=== PATIENT | female | born 1970 | race Caucasian/White ===

== ENCOUNTER 2016-08-23 16:19 | Emergency (ER) | payer OTHER ==
[~2016-08-23] VITALS: Ht 154.9 cm; Wt 111.8 kg
[~2016-08-23 16:19] MED LIST: BACTRIM,SEPT1 TABLET PO; IBUPROFEN800 MG PO; VICODIN 5-3001 EACH PO; [UNRECOGNIZED DRUG - REMARK]; [UNRECOGNIZED DRUG - REMARK]; [UNRECOGNIZED DRUG - REMARK]
[2016-08-23 17:42] LABS: HEMATOCRIT 41.2 % (36.0-46.0); MCH 29.2 PG (29.0-34.0); MCHC 34.7 G/DL (30.0-36.0); MCV 84.3 FL (83-99); MEAN PLAT.VOLUME 9.9 uM^3 (9.5-12.4); PLATELET COUNT 352 K/uL (156-360); RBC DIS.WIDTH-CV 12.1 % (11.8-14.6); RBC DIS.WIDTH-SD 36.5 % (39-53); RED BLOOD COUNT 4.89 M/uL (3.80-5.20)
[2016-08-23 17:45] LABS: WHITE BLOOD COUNT 11.4 K/uL (4.1-10.2)
[2016-08-23 17:54] LABS: CHLORIDE 106 mEq/L (99-109); POTASSIUM 4.2 mEq/L (3.7-5.4); SODIUM 141 mEq/L (136-147)
[2016-08-23 17:56] LABS: GLUCOSE 121 mg/dL (70-99)
[2016-08-23 17:57] LABS: ANION GAP 13 MEQ/L (2-14)
[2016-08-23 17:58] LABS: TOTAL BILIRUBIN 0.4 mg/dL (0.0-1.0)
[2016-08-23 18:00] LABS: ALKALINE PHOSPHATASE 130 IU/L (3-129); GFR ESTIMATE (CALCULATED) > 59 mL/min/
[2016-08-23 18:01] LABS: UREA NITROGEN (BUN) 10 mg/dL (9-23)
[2016-08-23 18:27] LABS: ADD MIUA? YES; BILIRUBIN NEGATIVE; BLOOD NEGATIVE; COLOR YELLOW ((YELLOW)); GLUCOSE (STRIP) NEGATIVE; KETONES NEGATIVE; LEUKOCYTES NEGATIVE; NITRITE NEGATIVE; PROTEIN (STRIP) NEGATIVE; SPECIFIC GRAVITY 1.021 (1.000-1.030); UROBILINOGEN 0.2 MG/DL (0.2-1.0)
[2016-08-23 18:33] LABS: BACTERIA NONE SEEN /HPF; EPITHELIAL CELLS 1+ /HPF; MUCUS TRACE /LPF; RED BLOOD CELLS 0-5 /HPF (0-5); UCUL ADDED? NO; WHITE BLOOD CELLS 0-5 /HPF (0-5)
[2016-08-23] MEDS ORDERED: NAPROSYN500 MG PO (20:29)
[2016-08-23] MEDS ORDERED: TRAMADOL HCL50 MG PO (20:29)
[2016-08-23 20:44] VITALS: BP 127/69
== END 2016-08-23 20:45 | disposition home or self-care (01) ==
LOC: EME 16:19
PROVIDERS: Nurse Practitioner Family
DX: N83.202 Unspecified ovarian cyst, left side (principal); N83.201 Unspecified ovarian cyst, right side; R11.2 Nausea with vomiting, unspecified; K76.0 Fatty (change of) liver, not elsewhere classified; I10 Essential (primary) hypertension; E11.9 Type 2 diabetes mellitus without complications; Z87.891 Personal history of nicotine dependence
CPT/HCPCS: 74176; 80053; 81003; 85027; 99281; 99284; J1885

== ENCOUNTER 2016-12-26 21:03 | Inpatient (IN) | payer OTHER ==
[~2016-12-26] VITALS: Ht 154.9 cm; Wt 115.4 kg
[~2016-12-26 21:03] MED LIST changes: +ASPIRIN81 M2 PO; +CLOZARIL100 MG PO; +COLACE100 MG PO; +DITROPAN5 MG PO; +LANTUS 3 M100 UNITS1 SC; +LIPITOR20 MG PO; +LISINOPRIL10 MG PO; +LOPID600 MG PO; +MULTIPLE VITAM1 EAC1 PO; +NAPROSYN500 MG PO; +NEURONTIN300 MG PO; +NOVOLOG PE100 UNITS/ SC; +TRAMADOL HCL50 MG PO
[2016-12-27 14:13] VITALS: BP 138/82
[2016-12-27 14:21] LABS: POINT-OF-CARE METER ID UU14174212
[2016-12-27 14:59] LABS: METH RESISTANT S AUREUS PCR NEGATIVE (NEGATIVE)
[2016-12-27 15:48] LABS: PROBE CHECK PASS; SPECIMEN PROCESSING CONTROL PASS
[2016-12-27 18:16] LABS: POINT-OF-CARE METER ID UU13113675
[2016-12-27 20:01] LABS: HEMATOCRIT 35.9 % (36.0-46.0); MCH 29.9 PG (29.0-34.0); MCHC 34.3 G/DL (30.0-36.0); MCV 87.3 FL (83-99); MEAN PLAT.VOLUME 9.7 uM^3 (9.5-12.4); PLATELET COUNT 239 K/uL (156-360); RBC DIS.WIDTH-CV 12.9 % (11.8-14.6); RBC DIS.WIDTH-SD 40.7 % (39-53); RED BLOOD COUNT 4.11 M/uL (3.80-5.20)
[2016-12-27 20:13] VITALS: BP 149/80
[2016-12-27 20:24] LABS: ANION GAP 9 MEQ/L (2-14); CHLORIDE 107 MEQ/L (99-109); GFR ESTIMATE (CALCULATED) > 59 mL/min/; GLUCOSE 124 mg/dL (70-99); POTASSIUM 4.3 MEQ/L (3.7-5.4); SAMPLE HEMOLYSIS CHECK 0; SAMPLE ICTERIC CHECK 0; SAMPLE LIPEMIA CHECK 0; SODIUM 141 MEQ/L (136-147); UREA NITROGEN (BUN) 10 mg/dL (9-23)
[2016-12-27 23:48] LABS: POINT-OF-CARE METER ID UU14162508
[2016-12-28 00:39] VITALS: BP 138/80
[2016-12-28 03:58] VITALS: BP 141/82
[2016-12-28 05:24] LABS: POINT-OF-CARE METER ID UU14162508
[2016-12-28 07:06] LABS: HEMATOCRIT 35.8 % (36.0-46.0); MCHC 34.9 G/DL (30.0-36.0); MCV 85.9 FL (83-99); MEAN PLAT.VOLUME 9.9 uM^3 (9.5-12.4); PLATELET COUNT 234 K/uL (156-360); RBC DIS.WIDTH-CV 12.7 % (11.8-14.6); RBC DIS.WIDTH-SD 39.3 % (39-53); RED BLOOD COUNT 4.17 M/uL (3.80-5.20); WHITE BLOOD COUNT 10.3 K/uL (4.1-10.2)
[2016-12-28 07:29] LABS: ANION GAP 9 MEQ/L (2-14); CHLORIDE 106 MEQ/L (99-109); GFR ESTIMATE (CALCULATED) > 59 mL/min/; POTASSIUM 3.8 MEQ/L (3.7-5.4); SAMPLE HEMOLYSIS CHECK 0; SAMPLE ICTERIC CHECK 0; SAMPLE LIPEMIA CHECK 0; SODIUM 140 MEQ/L (136-147); UREA NITROGEN (BUN) 7 mg/dL (9-23)
[2016-12-28 07:36] LABS: GLUCOSE 88 mg/dL (70-99)
[2016-12-28 07:55] VITALS: BP 114/61
[2016-12-28 11:15] VITALS: BP 137/75
[2016-12-28 12:04] LABS: POINT-OF-CARE METER ID UU14162508; POINT-OF-CARE USER ID PUTDRM
[2016-12-28 15:33] VITALS: BP 139/81
[2016-12-28 16:32] LABS: POINT-OF-CARE METER ID UU14162508; POINT-OF-CARE USER ID PUTDRM
[2016-12-28 16:53] LABS: EOSINOPHIL (%) 0 % (0-5); HEMATOCRIT 36.9 % (36.0-46.0); IMMATURE GRANULOCYTE (%) 0.3 % (0.0-0.7); INSTRUMENT ABS NEUTROPHIL CT 10.9 K/uL; LYMPHOCYTE COUNT 1.1 K/uL (1.0-2.8); MCHC 33.9 G/DL (30.0-36.0); MCV 85.6 FL (83-99); MEAN PLAT.VOLUME 9.9 uM^3 (9.5-12.4); MONOCYTE (%) 7.2 % (3-12); MONOCYTE COUNT 0.9 K/uL (0-0.8); NEUTROPHIL (%) 84.3 % (45-76); NEUTROPHIL COUNT 10.9 K/uL (1.8-6.4); PLATELET COUNT 230 K/uL (156-360); RBC DIS.WIDTH-CV 12.6 % (11.8-14.6); RBC DIS.WIDTH-SD 39.4 % (39-53); RED BLOOD COUNT 4.31 M/uL (3.80-5.20)
[2016-12-28 19:30] VITALS: BP 143/99
[2016-12-28 22:26] LABS: POINT-OF-CARE METER ID UU14162508
[2016-12-29] VITALS: BP 137/74
[2016-12-29 04:01] VITALS: BP 131/78
[2016-12-29 06:30] LABS: POINT-OF-CARE METER ID UU14162508
[2016-12-29 07:04] LABS: HEMATOCRIT 34.6 % (36.0-46.0); MCH 29.9 PG (29.0-34.0); MCHC 34.4 G/DL (30.0-36.0); MCV 86.9 FL (83-99); MEAN PLAT.VOLUME 10.4 uM^3 (9.5-12.4); PLATELET COUNT 221 K/uL (156-360); RBC DIS.WIDTH-CV 12.9 % (11.8-14.6); RBC DIS.WIDTH-SD 40.5 % (39-53); RED BLOOD COUNT 3.98 M/uL (3.80-5.20); WHITE BLOOD COUNT 10.7 K/uL (4.1-10.2)
[2016-12-29 07:39] LABS: ANION GAP 12 MEQ/L (2-14); CHLORIDE 102 MEQ/L (99-109); GFR ESTIMATE (CALCULATED) > 59 mL/min/; SAMPLE HEMOLYSIS CHECK 0; SAMPLE ICTERIC CHECK 0; SAMPLE LIPEMIA CHECK 0; SODIUM 137 MEQ/L (136-147); UREA NITROGEN (BUN) 7 mg/dL (9-23)
[2016-12-29 07:41] LABS: GLUCOSE 239 mg/dL (70-99)
[2016-12-29 07:45] VITALS: BP 127/74
== END 2016-12-29 10:55 | disposition home health service (06) | DRG 742 ==
LOC: ENRESERV 21:03 → 2SOUTH 12-27 10:05 → 2EAST 12-27 13:15 → 2SOUTH 12-27 13:15 → ENRESERV 12-27 18:00 → 2EAST 12-27 20:05
PROVIDERS: Obstetrics & Gynecology Gynecologic Oncology; Psychiatry & Neurology Psychiatry
DX: N83.202 Unspecified ovarian cyst, left side (principal); Z68.42 Body mass index [BMI] 45.0-49.9, adult; N83.201 Unspecified ovarian cyst, right side; E66.01 Morbid (severe) obesity due to excess calories; E78.5 Hyperlipidemia, unspecified; F20.9 Schizophrenia, unspecified; Z90.49 Acquired absence of other specified parts of digestive tract; I10 Essential (primary) hypertension; N13.5 Crossing vessel and stricture of ureter without hydronephrosis; N60.02 Solitary cyst of left breast; N39.3 Stress incontinence (female) (male); E11.65 Type 2 diabetes mellitus with hyperglycemia; Z79.82 Long term (current) use of aspirin; Z91.013 Allergy to seafood; Z80.3 Family history of malignant neoplasm of breast; Z83.3 Family history of diabetes mellitus; Z86.001 Personal history of in-situ neoplasm of cervix uteri; Z87.891 Personal history of nicotine dependence; Z90.710 Acquired absence of both cervix and uterus; Z79.4 Long term (current) use of insulin
CPT/HCPCS: 36415; 80048; 82948; 85025; 85027; 86850; 86900; 86901; 86920; 87641; 88108; 88305; 94799; C1758; J0131; J0330; J1170; J1580; J1650; J1815; J2250; J2405; J2710; J2765; J3010; J7050; J7120; Q0175; S0030